=== PATIENT | male | born 1950 | race African-American/Black ===

== ENCOUNTER 2023-04-18 12:06 | Inpatient (IN) | payer OTHER, MEDICAID ==
[~2023-04-18] VITALS: Ht 190.5 cm; Wt 93.4 kg
[2023-04-18 13:28] LABS: BASOPHILS % (AUTO) 0.4 % (0.0-2.0); EOSINOPHILS % (AUTO) 0.1 % (0.0-6.0); HEMATOCRIT 39 % (39-51); LYMPHOCYTES # (AUTO) 0.8 K/uL (0.8-4.8); LYMPHOCYTES % (AUTO) 16.4 % (20.0-44.0); MEAN CORPUSCULAR HEMOGLOBIN 33 PG (26.0-33.0); MEAN CORPUSCULAR HGB CONC 34 g/dl (31.0-36.0); MEAN CORPUSCULAR VOLUME 97 fL (80-96); MONOCYTES # (AUTO) 0.1 K/uL (0.1-1.30); MONOCYTES % (AUTO) 2.9 % (2.0-12.0); NEUTROPHILS # (AUTO) 3.8 K/uL (1.8-8.9); NEUTROPHILS % (AUTO) 80.2 % (43.0-81.0); PLATELET COUNT (AUTO) 153 K/uL (150-450); RED BLOOD CELL COUNT(AUTO) 3.97 MIL/uL (4.5-6.0); RED CELL DISTRIBUTION WIDTH 14.2 % (11.5-15.0); WHITE BLOOD COUNT (AUTO) 4.7 K/uL (4.3-11.0)
[2023-04-18 13:35] LABS: CALCIUM, SERUM 8.9 mg/dL (8.5-10.1); CARBON DIOXIDE 20 mmol/L (21-32); CHLORIDE 108 mmol/L (98-107); CREATININE 0.9 mg/dL (0.6-1.3); GLUCOSE 127 mg/dL (74-106); POTASSIUM 3.1 mmol/L (3.5-5.1); SODIUM SERUM 142 mmol/L (136-145); UREA NITROGEN, BLOOD 6 mg/dL (7-18)
[2023-04-18] MEDS ORDERED: CALC500T53 PO (13:37)
[2023-04-18] MEDS ORDERED: ISOS60TA72 PO (13:37)
[2023-04-18] MEDS ORDERED: DULO60CA45 PO (13:37)
[2023-04-18] MEDS ORDERED: RIBO100T3 PO (13:37)
[2023-04-18] MEDS ORDERED: BACL10TA PO (13:37)
[2023-04-18] MEDS ORDERED: CEPH500T PO (13:37)
[2023-04-18] MEDS ORDERED: ACET-2605 PO (13:37)
[2023-04-18] MEDS ORDERED: MAGN400O6 PO (13:37)
[2023-04-18] MEDS ORDERED: ACET-868 PO (13:37)
[2023-04-18] MEDS ORDERED: ATOR80TA PO (13:37)
[2023-04-18] MEDS ORDERED: GABA300C PO (13:37)
[2023-04-18] MEDS ORDERED: NALT50TA PO (13:37)
[2023-04-18] MEDS ORDERED: MAGNESIUM GLUCONATE PO (13:37)
[2023-04-18] MEDS ORDERED: SENN-261 PO (13:37)
[2023-04-18] MEDS ORDERED: PRED20TA PO (13:37)
[2023-04-18] MEDS ORDERED: FLEC100T2 PO (13:37)
[2023-04-18] MEDS ORDERED: SERT25TA PO (13:37)
[2023-04-18] MEDS ORDERED: NA P133E RC (13:37)
[2023-04-18] MEDS ORDERED: SUMA100T16 PO (13:37)
[2023-04-18] MEDS ORDERED: TAMS-12 PO (13:37)
[2023-04-18] MEDS ORDERED: FINA5TAB3 PO (13:37)
[2023-04-18] MEDS ORDERED: BISA10SU11 RC (13:37)
[2023-04-18] MEDS ORDERED: APIX5TAB PO (13:37)
[2023-04-18 13:49] LABS: NT-PRO BNP 1374 pg/mL (0-125)
[2023-04-18] MEDS ORDERED: FUROSEMIDE 40 MG/4 ML VIAL IV ONE (14:00)
[2023-04-18] MEDS ORDERED: METOPROLOL TARTRATE INJ 5 MG/5 ML AMPUL IV ONE (14:00)
[2023-04-18] MEDS ORDERED: MORPHINE SULFATE INJ 2 MG/ML DISP.SYRIN IV ONE (14:30)
[2023-04-18] MEDS ORDERED: METOPROLOL TARTRATE INJ 5 MG/5 ML AMPUL ONE (14:41)
[2023-04-18] MEDS ORDERED: FUROSEMIDE 40 MG/4 ML VIAL ONE (14:41)
[2023-04-18] MEDS ORDERED: MORPHINE SULFATE INJ 4 MG/ML DISP.SYRIN ONE (14:41)
[2023-04-18] MEDS ORDERED: POTASSIUM CHLORIDE 20 MEQ TAB.PRT.SR PO ONE ×2 (19:28→19:30)
[2023-04-18] MEDS ORDERED: MAGNESIUM HYDROXIDE 30 ML UDC PO PRN (20:30)
[2023-04-18] MEDS ORDERED: Medication Not On Formulary EA (Naltrexone Hcl 50 MG) PO PRN (20:30)
[2023-04-18] MEDS ORDERED: BISACODYL SUPP (10 MG) 10 MG/SUPP.RECT SUPP.RECT RC PRN (20:30)
[2023-04-18] MEDS ORDERED: ACETAMINOPHEN 325 MG TABLET PO PRN (20:30)
[2023-04-18] MEDS ORDERED: NA PHOS,M-B/NA PHOS,DI-BA 1 EA ENEMA RC PRN (20:30)
[2023-04-18 22:10] VITALS: BP 144/80; TEMP 98.1; O2SAT 98
[2023-04-18] MEDS: SENNOSIDES 8.6 MG TABLET PO SCH (22:54)
[2023-04-18] MEDS: ATORVASTATIN 40 MG TABLET PO SCH (22:54)
[2023-04-18] MEDS: BACLOFEN (10 MG) 10 MG TABLET PO SCH (22:54)
[2023-04-18] MEDS: TAMSULOSIN 0.4 MG CAP.SR.24H PO SCH (22:54)
[2023-04-18 23:50] VITALS: BP 144/80; TEMP 98.1; O2SAT 98
[2023-04-19] VITALS: BP 146/65; TEMP 98; O2SAT 97
[2023-04-19] MEDS ORDERED: ONDANSETRON HCL/PF 4 MG/2 ML VIAL IV PRN (02:00)
[2023-04-19] MEDS ORDERED: MORPHINE SULFATE INJ 2 MG/ML DISP.SYRIN IV PRN (02:00)
[2023-04-19] MEDS ORDERED: HYDROCODONE/APAP 5/325MG TABLET PO PRN (02:00)
[2023-04-19 06:55] LABS: ALBUMIN 2.7 g/dL (3.4-5.0); BILIRUBIN,TOTAL 0.7 mg/dL (0.2-1.0); CALCIUM, SERUM 8.4 mg/dL (8.5-10.1); POTASSIUM 2.9 mmol/L (3.5-5.1); TOTAL PROTEIN, SERUM 5.5 g/dL (6.4-8.2)
[2023-04-19] MEDS ORDERED: POTASSIUM CHLORIDE 20 MEQ TAB.PRT.SR PO ONE (08:30)
[2023-04-19] MEDS ORDERED: RIBOFLAVIN 100 MG PO SCH (09:00)
[2023-04-19] MEDS ORDERED: ASPIRIN EC 81 MG TABLET.DR PO ONE (09:00)
[2023-04-19] MEDS: CALCIUM CARBONATE (1250) 500 MG TABLET PO SCH ×3 (09:03→17:04)
[2023-04-19] MEDS: DULOXETINE HCL 30 MG CAPSULE.DR PO SCH (09:03)
[2023-04-19] MEDS: ISOSORBIDE MONONITRATE (30MG) 30 MG TAB.SR.24H PO SCH (09:03)
[2023-04-19] MEDS: FINASTERIDE (5 MG) 5 MG TABLET PO SCH (09:03)
[2023-04-19] MEDS: FLECAINIDE ACETATE (100 MG) 100 MG TABLET PO SCH (09:04)
[2023-04-19] MEDS: SERTRALINE HCL 25 MG TABLET PO SCH (09:04)
[2023-04-19] MEDS: predniSONE 20 MG TABLET PO SCH (09:04)
[2023-04-19] MEDS: BACLOFEN (10 MG) 10 MG TABLET PO SCH ×4 (09:05→21:43)
[2023-04-19] MEDS: GABAPENTIN 300 MG CAPSULE PO SCH ×3 (09:05→17:04)
[2023-04-19] MEDS: APIXABAN 5 MG TABLET PO SCH ×2 (09:06→21:30)
[2023-04-19] MEDS ORDERED: NITROGLYCERIN 0.4 MG/TAB BOTTLE SL ONE ×2 (11:30→12:00)
[2023-04-19] MEDS ORDERED: METOPROLOL TARTRATE INJ 5 MG/5 ML AMPUL IVP PRN (11:30)
[2023-04-19] MEDS ORDERED: NITROGLYCERIN 0.4 MG/TAB BOTTLE ONE (11:35)
[2023-04-19] MEDS ORDERED: IOHEXOL-350 100 ML VIAL IV ONE (11:35)
[2023-04-19] MEDS: METOPROLOL TARTRATE INJ 5 MG/5 ML AMPUL IVP PRN ×10 (11:35→12:20)
[2023-04-19] MEDS ORDERED: METOPROLOL TARTRATE INJ 5 MG/5 ML AMPUL ONE (11:36)
[2023-04-19] MEDS ORDERED: CT SWABBABLE VALVE TRANS SET 1 EA INFUS.SET MC ONE (11:36)
[2023-04-19] MEDS ORDERED: IV NS 0.9% 250 ML IV ONE (11:37)
[2023-04-19 13:39] LABS: THYROID STIMULATING HORMONE 0.346 uIU/mL (0.358-3.74)
[2023-04-19 14:28] LABS: MAGNESIUM 1.7 mg/dL (1.8-2.4); PHOSPHORUS 3.3 mg/dL (2.5-4.9)
[2023-04-19] MEDS: PANTOPRAZOLE 40 MG TABLET.DR PO SCH (14:49)
[2023-04-19 20:00] VITALS: BP 141/100; TEMP 97.7; O2SAT 97
[2023-04-19] MEDS: TAMSULOSIN 0.4 MG CAP.SR.24H PO SCH (21:26)
[2023-04-19] MEDS: ATORVASTATIN 40 MG TABLET PO SCH (21:26)
[2023-04-19] MEDS: SENNOSIDES 8.6 MG TABLET PO SCH (21:26)
[2023-04-19] MEDS ORDERED: ZOLPIDEM TARTRATE 5 MG TABLET PO ONE (22:30)
[2023-04-20] VITALS: BP 133/82; TEMP 98.2; O2SAT 95
[2023-04-20 05:19] VITALS: BP 141/71; TEMP 97.8; O2SAT 97
[2023-04-20 08:00] VITALS: BP 135/60; TEMP 98; O2SAT 98
[2023-04-20] MEDS: BACLOFEN (10 MG) 10 MG TABLET PO SCH ×5 (09:00→21:26)
[2023-04-20] MEDS: FLECAINIDE ACETATE (100 MG) 100 MG TABLET PO SCH (10:04)
[2023-04-20] MEDS: SERTRALINE HCL 25 MG TABLET PO SCH (10:04)
[2023-04-20] MEDS: CALCIUM CARBONATE (1250) 500 MG TABLET PO SCH ×3 (10:04→18:33)
[2023-04-20] MEDS: predniSONE 20 MG TABLET PO SCH (10:05)
[2023-04-20] MEDS: PANTOPRAZOLE 40 MG TABLET.DR PO SCH (10:05)
[2023-04-20] MEDS: DULOXETINE HCL 30 MG CAPSULE.DR PO SCH (10:13)
[2023-04-20] MEDS: GABAPENTIN 300 MG CAPSULE PO SCH ×3 (10:14→18:34)
[2023-04-20] MEDS: ISOSORBIDE MONONITRATE (30MG) 30 MG TAB.SR.24H PO SCH (10:14)
[2023-04-20] MEDS: FINASTERIDE (5 MG) 5 MG TABLET PO SCH (10:16)
[2023-04-20] MEDS: APIXABAN 5 MG TABLET PO SCH ×2 (10:17→22:57)
[2023-04-20 12:00] VITALS: BP 138/69; TEMP 98.2; O2SAT 98
[2023-04-20 16:00] VITALS: BP 139/77; TEMP 98.4; O2SAT 97
[2023-04-20 20:00] VITALS: BP 156/80; TEMP 97.3; O2SAT 98
[2023-04-20] MEDS: ATORVASTATIN 40 MG TABLET PO SCH (21:26)
[2023-04-20] MEDS: SENNOSIDES 8.6 MG TABLET PO SCH (21:26)
[2023-04-20] MEDS: TAMSULOSIN 0.4 MG CAP.SR.24H PO SCH (21:26)
[2023-04-20] MEDS ORDERED: METO25TA3 PO (21:36)
[2023-04-20] MEDS ORDERED: METOPROLOL SUCCINATE 25 MG TAB.SR.24H PO SCH (22:00)
[2023-04-21] MEDS: PANTOPRAZOLE 40 MG TABLET.DR PO SCH (07:32)
[2023-04-21 08:00] VITALS: BP 152/76; TEMP 97.9; O2SAT 96
[2023-04-21] MEDS: FLECAINIDE ACETATE (100 MG) 100 MG TABLET PO SCH (09:12)
[2023-04-21] MEDS: DULOXETINE HCL 30 MG CAPSULE.DR PO SCH (09:12)
[2023-04-21] MEDS: SERTRALINE HCL 25 MG TABLET PO SCH (09:13)
[2023-04-21] MEDS: GABAPENTIN 300 MG CAPSULE PO SCH ×2 (09:13→13:00)
[2023-04-21] MEDS: FINASTERIDE (5 MG) 5 MG TABLET PO SCH (09:13)
[2023-04-21] MEDS: predniSONE 20 MG TABLET PO SCH (09:13)
[2023-04-21] MEDS: BACLOFEN (10 MG) 10 MG TABLET PO SCH ×2 (09:13→13:00)
[2023-04-21] MEDS: CALCIUM CARBONATE (1250) 500 MG TABLET PO SCH ×2 (09:13→13:00)
[2023-04-21 09:40] VITALS: BP 156/76
[2023-04-21] MEDS: ISOSORBIDE MONONITRATE (30MG) 30 MG TAB.SR.24H PO SCH (09:40)
[2023-04-21] MEDS: APIXABAN 5 MG TABLET PO SCH (09:46)
[2023-04-21] MEDS ORDERED: METO50TA7 PO (10:59)
[2023-04-21] MEDS ORDERED: METOPROLOL SUCCINATE 50 MG TAB.SR.24H PO SCH (22:00)
== END 2023-04-21 14:10 | disposition home or self-care (01) | DRG 313 ==
LOC: ER 12:08 → TELE 21:07
PROVIDERS: ADMIT Internal Medicine; ATTEND Internal Medicine
PROC: 05HB33Z Insertion of Infusion Device into Right Basilic Vein, Percutaneous Approach (ICD-10-PCS; principal; 2023-04-19)
DX: R07.89 Other chest pain (principal); Z86.73 Personal history of transient ischemic attack (TIA), and cerebral infarction without residual deficits; E78.5 Hyperlipidemia, unspecified; N40.0 Benign prostatic hyperplasia without lower urinary tract symptoms; I10 Essential (primary) hypertension; Z79.01 Long term (current) use of anticoagulants; Z79.899 Other long term (current) drug therapy; I35.1 Nonrheumatic aortic (valve) insufficiency; F32.9 Major depressive disorder, single episode, unspecified; E87.6 Hypokalemia; I48.91 Unspecified atrial fibrillation
CPT/HCPCS: 36410; 36415; 71045-TC; 75574; 80048-TC; 80053-TC; 83735-TC; 83880; 84100-TC; 84439-TC; 84443-TC; 84484-TC; 85025-TC; 87081-TC; 93307-TC; G0378; J1940; J2270; J3490; J7050; Q9967